=== PATIENT | male | born 1965 | race Caucasian/White ===

== ENCOUNTER 2022-01-16 09:43 | Day surgery (SDC) | payer BC ==
[2022-01-16] VITALS (9 sets, daily range): BP systolic 111–143; BP diastolic 52–75
[~2022-01-16] VITALS: Ht 175.3 cm; Wt 111.2 kg
[2022-01-16] MEDS ORDERED: diphenhydrAMINE 25mg capsule PO PRN (10:20)
[2022-01-16 10:52] LABS: BASOPHILS # (AUTO) 0.1 X10'3 (0-0.2); BASOPHILS % (AUTO) 0.8 % (0-1); EOSINOPHILS # (AUTO) 0.2 X10'3 (0-0.9); EOSINOPHILS % (AUTO) 1.7 % (0-6); HEMATOCRIT 46.1 % (42.0-52.0); HEMOGLOBIN 15.7 g/dl (14.0-17.9); LYMPHOCYTES # (AUTO) 2.5 X10'3 (1.1-4.8); LYMPHOCYTES % (AUTO) 23.7 % (21-51); MEAN CORPUSCULAR HEMOGLOBIN 31.7 PG (27.0-31.0); MEAN CORPUSCULAR HGB CONC 34.1 g/dL (33.0-36.5); MEAN CORPUSCULAR VOLUME 93.1 FL (78-98); MEAN PLATELET VOLUME 8.1 FL (7.4-10.4); MONOCYTES # (AUTO) 0.6 X10'3 (0-0.9); NEUTROPHILS # (AUTO) 7.1 X10'3 (1.8-7.7); NEUTROPHILS % (AUTO) 67.8 % (42-75); PLATELET COUNT 214 X10'3 (140-440); RED BLOOD COUNT 4.96 X10'6 (4.70-6.10); RED CELL DISTRIBUTION WIDTH 13.3 % (11.5-14.5); WHITE BLOOD COUNT 10.4 X10'3 (4.5-11.0)
[2022-01-16 10:57] LABS: ALBUMIN 3.8 G/DL (3.4-5.0); ANION GAP 10 (8-16); BLOOD UREA NITROGEN 19 MG/DL (7-18); CALCIUM 9.3 MG/DL (8.5-10.1); CHLORIDE 105 MMOL/L (99-107); CREATININE 0.76 MG/DL (0.60-1.10); GLUCOSE 117 MG/DL (70-104); MAGNESIUM 2.1 MG/DL (1.5-2.4); POTASSIUM 4.2 MMOL/L (3.5-5.1); SODIUM 139 MMOL/L (135-145); TOTAL CARBON DIOXIDE 23.6 MMOL/L (24-32); eGFR > 90 ML/MIN
[2022-01-16] MEDS ORDERED: nitroGLYCERIN-Tridil 50MG/D5W 250 ML IV ONE (10:57)
[2022-01-16] MEDS ORDERED: verapamil 2.5 mg/ml inj IV ONE (10:57)
[2022-01-16] MEDS ORDERED: midazolam 1 mg/ML 2ml injection ONE ×2 (10:58→13:29)
[2022-01-16] MEDS ORDERED: LIDOcaine 1%/PF 5ML 10 MG/ML VIAL ONE (10:58)
[2022-01-16] MEDS ORDERED: heparin 1,000unit/ml 10ml vial 10 ML ONE (10:58)
[2022-01-16] MEDS ORDERED: fentaNYL/PF 50MCG/1 ML 2ML syringe ONE (10:58)
[2022-01-16] MEDS ORDERED: iohexol 350MG/ML 100ml bottle IV ONE ×2 (10:58→13:07)
[2022-01-16] MEDS ORDERED: EZET10TA48 PO (11:03)
[2022-01-16] MEDS ORDERED: ASPI81TA52 PO (11:03)
[2022-01-16] MEDS ORDERED: ATOR-2 PO (11:03)
[2022-01-16] MEDS ORDERED: LISI5TAB22 PO (11:03)
[2022-01-16] MEDS ORDERED: NITR0.4T48 SL (11:03)
[2022-01-16] MEDS ORDERED: CARV3.1244 PO (11:03)
[2022-01-16] MEDS: normal saline 1,000 ML IV SCH ×2 (11:31→14:49)
[2022-01-16] MEDS ORDERED: ticagrelor 90mg tablet ONE (13:50)
[2022-01-16] MEDS ORDERED: LIDOcaine 2% (20 mg/ml) 5ml cardiac syringe ONE (13:58)
[2022-01-16] MEDS ORDERED: normal saline 1000ml 1,000 ML IV SCH (14:40)
[2022-01-16] MEDS ORDERED: HYDROcodone/acetaminophen 5mg/325mg tablet PO PRN (14:40)
[2022-01-16] MEDS ORDERED: HYDROcodone/acetaminophen 10/325mg tab PO PRN (14:40)
[2022-01-16] MEDS ORDERED: ondansetron/PF 4mg/2ml inj IV PRN (14:40)
[2022-01-16] MEDS ORDERED: proCHLORperazine 10 MG/2 ml inj IV PRN (14:55)
== END 2022-01-16 17:54 | disposition home or self-care (01) ==
LOC: SSTAY O 09:43
PROVIDERS: ATTEND Internal Medicine Cardiovascular Disease
DX: I25.10 Atherosclerotic heart disease of native coronary artery without angina pectoris (principal); R94.39 Abnormal result of other cardiovascular function study; I48.91 Unspecified atrial fibrillation; E78.5 Hyperlipidemia, unspecified; I10 Essential (primary) hypertension; Z87.891 Personal history of nicotine dependence
CPT/HCPCS: 36415; 80048; 83735; 85025; 85610; 92960; 93005; 93458; C1725; C1751; C1769; C1874; C1894; C9600; C9601; J1644; J2250; J3010; J3490; J7030; Q0163; Q9967; 99152; 99153; A4620; A5120; A6258; A6402

== ENCOUNTER 2023-03-14 13:46 | Emergency (ER) | payer BC ==
[~2023-03-14] VITALS: Ht 175.3 cm; Wt 109.1 kg
[~2023-03-14 13:46] MED LIST: ASPI81TA52 PO; ATOR-2 PO; CARV3.1244 PO; EZET10TA48 PO; LISI5TAB22 PO; NITR0.4T48 SL
[2023-03-14 14:45] LABS: BASOPHILS # (AUTO) 0.1 X10'3 (0-0.2); BASOPHILS % (AUTO) 0.6 % (0-1); EOSINOPHILS # (AUTO) 0.2 X10'3 (0-0.9); EOSINOPHILS % (AUTO) 1.9 % (0-6); HEMATOCRIT 47.2 % (42.0-52.0); HEMOGLOBIN 16.2 g/dl (14.0-17.9); LYMPHOCYTES # (AUTO) 2.6 X10'3 (1.1-4.8); LYMPHOCYTES % (AUTO) 24.3 % (21-51); MEAN CORPUSCULAR HEMOGLOBIN 32.6 PG (27.0-31.0); MEAN CORPUSCULAR HGB CONC 34.4 g/dL (33.0-36.5); MEAN CORPUSCULAR VOLUME 94.7 FL (78-98); MEAN PLATELET VOLUME 8.5 FL (7.4-10.4); MONOCYTES # (AUTO) 0.9 X10'3 (0-0.9); MONOCYTES % (AUTO) 8.3 % (2-12); NEUTROPHILS % (AUTO) 64.9 % (42-75); PLATELET COUNT 236 X10'3 (140-440); RED BLOOD COUNT 4.99 X10'6 (4.70-6.10); RED CELL DISTRIBUTION WIDTH 13.7 % (11.5-14.5); WHITE BLOOD COUNT 10.8 X10'3 (4.5-11.0)
[2023-03-14 14:48] LABS: ALANINE AMINOTRANSFERASE 50 U/L (12-78); ALBUMIN 4.1 G/DL (3.4-5.0); ALBUMIN/GLOBULIN RATIO 1.3 (1.1-1.5); ALKALINE PHOSPHATASE 83 IU/L (46-116); ANION GAP 9 (8-16); ASPARTATE AMINO TRANSFERASE 26 U/L (10-37); BILIRUBIN,TOTAL 0.6 MG/DL (0.1-1.0); BLOOD UREA NITROGEN 17 MG/DL (7-18); BUN/CREATININE RATIO 21.5 (10.0-20.0); CALCIUM 9.4 MG/DL (8.5-10.1); CHLORIDE 103 MMOL/L (99-107); CREATININE 0.79 MG/DL (0.60-1.10); GLUCOSE 97 MG/DL (70-104); POTASSIUM 3.9 MMOL/L (3.5-5.1); SODIUM 135 MMOL/L (135-145); TOTAL CARBON DIOXIDE 23.4 MMOL/L (24-32); TOTAL PROTEIN 7.3 G/DL (6.4-8.2); eCRCL 101 ML/MIN; eGFR > 90 ML/MIN
[2023-03-14 14:59] LABS: PRO BRAIN NATRIURETIC PEPTIDE 95 PG/ML (0-125)
[2023-03-14 18:09] VITALS: PULSE 58; TEMP 98.3
[2023-03-14] MEDS ORDERED: aspirin 325mg tablet PO ONE (18:45)
[2023-03-14] MEDS ORDERED: nitroGLYCERIN 0.4mg SUBLingual tab SL PRN ×3 (19:10)
[2023-03-14 19:43] VITALS: BP 134/64; RESP 16; O2SAT 97
== END 2023-03-14 19:46 | disposition left against medical advice (07) ==
LOC: ER 13:46
DX: R07.89 Other chest pain (principal); Z88.2 Allergy status to sulfonamides; Z79.82 Long term (current) use of aspirin; Z79.899 Other long term (current) drug therapy
CPT/HCPCS: 36415; 71045; 80053; 83880; 84484; 85025; 93005; 99285